=== PATIENT | male | born 1980 | race Caucasian/White ===

== ENCOUNTER → 2020-12-10 | Outpatient (CLI) | payer BC ==
--- NOTE | 2020-12-10 11:07 | DRAGON STRESS TEST REPORT ---
Exercise stress test Date: 12/10/2020 Referring physician: Laura Yap MD Performing physician: Gerardo Novoa MD Indication: Chest pain Clinical history 39 year old male with medical history of systemic hypertension, dyslipidemia and with nicotine dependence ( cigarettes) presented to the office with complaints of chest pain. We decided to pursue plain treadmill stress test. Procedure The patient presented to the stress lab. The patient exercised on the treadmill according to Jovani protocol for a total of 13 minutes and 34 seconds achieving a maximum heart rate of 169 bpm which was 93 % of maximum predicted of 181 bpm. The maximum workload was 13.40 METS. The presenting EKG showed sinus rhythm at 85 bpm. The initial blood pressure was 132/85 mmHg. Upon exercise the heart rate richie to a maximum of 169 beats per minute and the blood pressure richie to a maximum of 179/81 mmHg. The patient had appropriate increment in heart rate and blood pressure with exercise. The exercise EKG was negative for myocardial ischemia. The recovery EKG did not reveal any evidence of myocardial ischemia. The patient tolerated the exercise well and did not report chest pain or dyspnea. The test was terminated on account of patient fatigue and patient having achieved target heart rate. The patient's EKG and vital signs were monitored throughout the procedure. Conclusion The exercise EKG is negative for myocardial ischemia. Excellent exercise tolerance. Normal heart rate and blood pressure response to exercise. The patient will be given an appointment to discuss the test results. JANELLE
== END ==
LOC: SP 09:18
PROVIDERS: ATTEND Internal Medicine
DX: I10 Essential (primary) hypertension (principal); R07.9 Chest pain, unspecified; I25.9 Chronic ischemic heart disease, unspecified; E78.5 Hyperlipidemia, unspecified; F17.218 Nicotine dependence, cigarettes, with other nicotine-induced disorders
CPT/HCPCS: 93017